=== PATIENT | male | born 1985 | race Caucasian/White ===

== ENCOUNTER 2022-09-30 01:41 | Emergency (ER) | payer SELFPAY ==
[~2022-09-30] VITALS: Ht 175.3 cm; Wt 80.0 kg
[2022-09-30 02:37] VITALS: BP 139/92; PULSE 89; RESP 17; TEMP 98.1; O2SAT 97
[2022-09-30] MEDS ORDERED: IBUP-2029 MT (03:30)
[2022-09-30] MEDS ORDERED: KETOROLAC 60MG/2ML VIAL IM ONE (03:30)
== END 2022-09-30 05:47 | disposition home or self-care (01) ==
LOC: ER 05:36
DX: M25.531 Pain in right wrist (principal); Z68.26 Body mass index [BMI] 26.0-26.9, adult
CPT/HCPCS: 73130; 99283